=== PATIENT | female | born 1950 | race Caucasian/White ===

== ENCOUNTER → 2016-11-13 | Outpatient (REF) | payer MEDICAID, MEDICARE ==
[2016-11-13 12:35] LABS: BILIRUBIN,URINE Negative (Negative); CLARITY,URINE Clear; COLOR,URINE Yellow; GLUCOSE, URINE (UA) Negative (Negative); LEUKOCYTE ESTERASE ,URINE Trace (Negative); PH,URINE 5.5 (5.0 - 8.0); UROBILINOGEN,URINE 0.2 mg/dL (0.2-1.0)
[2016-11-13 12:45] LABS: URINE CENTRIFUGED VOLUME 12 mL
== END ==
LOC: LAB 12:02
PROVIDERS: ATTEND Family Medicine
DX: N39.0 Urinary tract infection, site not specified (principal)
CPT/HCPCS: 81003; 81015; 87088

== ENCOUNTER 2016-11-16 21:16 | Emergency (ER) | payer MEDICAID, MEDICARE ==
[~2016-11-16] VITALS: Ht 165.1 cm; Wt 181.4 kg
[2016-11-16] MEDS ORDERED: ALBUTEROL/IPRATROPIUM 3MG-0.5MG/3ML (DUONEB) NEB VIAL INH ONE ×2 (21:50→23:47)
[2016-11-16] MEDS ORDERED: SODIUM CHLORIDE FLUSH 10 ML SYR IV PRN (22:10)
[2016-11-16] MEDS ORDERED: SODIUM CHLORIDE FLUSH 3 ML SYR IV ONE (22:10)
[2016-11-16 22:20] LABS: BASOPHILS % (AUTO) 0 % (0-2); EOSINOPHILS % (AUTO) 0 % (0-4); LYMPHOCYTES # (AUTO) 0.4 X10^3; MEAN CORPUSCULAR VOLUME 82 FL (80-100); MEAN PLATELET VOLUME 9.9 FL (6.0-9.5); MONOCYTES # (AUTO) 0.3 X10^3; MONOCYTES % (AUTO) 11 % (3-11); NEUTROPHILS # (AUTO) 2.4 X10^3; NEUTROPHILS % (AUTO) 77 % (51-67); PLATELET COUNT 286 10^3uL (150-450); WHITE BLOOD COUNT 3.15 10^3uL (4.0-11.0)
[2016-11-16 22:21] LABS: MEAN CORPUSCULAR HEMOGLOBIN 25.4 PG (26.0-34.0)
[2016-11-16 22:22] LABS: MEAN CORPUSCULAR HGB CONC 31.1 g/dL (31.0-37.0)
[2016-11-16 22:29] LABS: ALBUMIN 3.7 g/dL (3.4-5.0); ALKALINE PHOSPHATASE 78 U/L (38-126); ANION GAP 18.3 MEQ/L (3-15); BUN/CREATININE RATIO 28 (10-20); CALCULATED IONIZED CALCIUM 3.8 mg/dL (3.8-4.6); TOTAL PROTEIN 7.1 g/dL (6.4-8.5)
[2016-11-16 22:37] LABS: INFLUENZA VIRUS TYPE A ANTIBOD Positive (NEGATIVE); INFLUENZA VIRUS TYPE B ANTIBOD Negative (NEGATIVE)
[2016-11-16] MEDS ORDERED: cefTRIAXone SODIUM 1,000 MG in SODIUM CHLORIDE 50 ML IV ONE (23:30)
--- NOTE | 2016-11-16 23:55 | NUR ---
Report called to Maria Nye LPN . No futher questions, verbalized understanding.
[2016-11-17] MEDS ORDERED: ALBUTEROL/IPRATROPIUM 3MG-0.5MG/3ML (DUONEB) NEB VIAL INH ONE (00:05)
[2016-11-17 00:13] VITALS: BP 116/64
== END 2016-11-17 00:38 | disposition home or self-care (01) ==
LOC: EDUNIT# 21:16 → ED 21:18
DX: J11.1 Influenza due to unidentified influenza virus with other respiratory manifestations (principal)
CPT/HCPCS: 36415; 71010; 80053; 83605; 83880; 84484; 85025; 87502; 94640; 96365; 99284; J0696; 99283

== ENCOUNTER 2016-12-04 17:58 | Emergency (ER) | payer MEDICAID, MEDICARE ==
[~2016-12-04] VITALS: Ht 157.5 cm; Wt 200.0 kg
--- NOTE | 2016-12-04 19:37 | NUR ---
Assisted to bedpan, very large stool, personal care given.
[2016-12-04 19:42] LABS: BASOPHILS % (AUTO) 0 % (0-2); EOSINOPHILS # (AUTO) 0.1 10^3uL; EOSINOPHILS % (AUTO) 2 % (0-4); LYMPHOCYTES # (AUTO) 0.7 X10^3; MEAN CORPUSCULAR VOLUME 82 FL (80-100); MONOCYTES # (AUTO) 0.6 X10^3; MONOCYTES % (AUTO) 9 % (3-11); NEUTROPHILS # (AUTO) 5.6 X10^3; NEUTROPHILS % (AUTO) 79 % (51-67); PLATELET COUNT 251 10^3uL (150-450); WHITE BLOOD COUNT 7.04 10^3uL (4.0-11.0)
[2016-12-04 19:49] LABS: ALBUMIN 3.5 g/dL (3.4-5.0); ALKALINE PHOSPHATASE 92 U/L (38-126); ANION GAP 13.1 MEQ/L (3-15); BUN/CREATININE RATIO 27 (10-20); TOTAL PROTEIN 6.9 g/dL (6.4-8.5)
[2016-12-04 19:50] LABS: MEAN CORPUSCULAR HEMOGLOBIN 25.9 PG (26.0-34.0); MEAN CORPUSCULAR HGB CONC 31.4 g/dL (31.0-37.0)
--- NOTE | 2016-12-04 20:12 | NUR ---
Report given to CHUCK Romero.
[2016-12-04] MEDS ORDERED: FUROSEMIDE 100 MG/10 ML (LASIX) VIAL IV ONE (21:05)
[2016-12-04 22:35] VITALS: BP 166/68
[2016-12-05 00:13] LABS: BILIRUBIN,URINE Negative (Negative); CLARITY,URINE Clear; COLOR,URINE Yellow; GLUCOSE, URINE (UA) Negative (Negative); LEUKOCYTE ESTERASE ,URINE Negative (Negative); UROBILINOGEN,URINE 0.2 mg/dL (0.2-1.0)
[2016-12-05 00:21] LABS: RBC,URINE 0-2 /HPF; URINE CENTRIFUGED VOLUME 12 mL
== END 2016-12-04 22:35 | disposition short-term general hospital (02) ==
LOC: ED 18:06
DX: I13.0 Hypertensive heart and chronic kidney disease with heart failure and stage 1 through stage 4 chronic kidney disease, or unspecified chronic kidney disease (principal); N18.3 Chronic kidney disease, stage 3 (moderate); I50.1 Left ventricular failure, unspecified; Z87.891 Personal history of nicotine dependence
CPT/HCPCS: 36415; 71020; 80053; 81003; 81015; 83880; 84484; 85025; 85379; 86140; 93005; 96374; 99285; J1940; 93010

== ENCOUNTER → 2016-12-04 | Outpatient (CLI) | payer MEDICARE, MEDICAID | LOC: EMS 22:10 | PROVIDERS: ATTEND Emergency Medicine | DX: R06.09 Other forms of dyspnea (principal); I50.9 Heart failure, unspecified ==

== ENCOUNTER 2016-12-16 11:31 | Emergency (ER) | payer MEDICAID, MEDICARE ==
[~2016-12-16] VITALS: Ht 170.2 cm; Wt 195.0 kg
--- NOTE | 2016-12-16 11:16 | NUR ---
Pt nurse called report stating pt had coughed up blood and mucous x2 this morning. Pt c/o pain in Rt chest and right side 07/16. RR elevated at 28 temp 100.8 at facility. Nurse states that pt is unhappy because she was recently taken off of [place] pain meds, but remains on fentanyl and oxycodone. HX of CHF, DVT, morbid obesity, pneumonia. Nurse states pt recenlty gained 30lbs during a hospital stay. PCP is Dr. Tan
[2016-12-16] MEDS ORDERED: ALBUTEROL 0.083% NEB SOLUTION 2.5 MG/3 ML VIAL INH ONE (11:45)
[2016-12-16] MEDS ORDERED: LORazepam 2 MG/ML (ATIVAN) 1 ML VIAL IV ONE ×2 (11:45→14:10)
[2016-12-16] MEDS ORDERED: HYDROmorphone 1 MG/ML (DILAUDID) SYRINGE IV ONE ×3 (11:45→13:30)
[2016-12-16 11:59] LABS: MEAN CORPUSCULAR VOLUME 82 FL (80-100); MEAN PLATELET VOLUME 10.3 FL (6.0-9.5); PLATELET COUNT 251 10^3uL (150-450); WHITE BLOOD COUNT 22.53 10^3uL (4.0-11.0)
[2016-12-16 12:11] LABS: MEAN CORPUSCULAR HEMOGLOBIN 25.1 PG (26.0-34.0); MEAN CORPUSCULAR HGB CONC 30.7 g/dL (31.0-37.0)
[2016-12-16 12:12] LABS: BAND NEUTROPHILS % 0 % (0-6); EOSINOPHILS % 0 % (0-4); LYMPHOCYTES # 1.1 #; MONOCYTES # 1.3 #; MONOCYTES % 6 % (3-11); RBC MORPH NORMAL (NORMAL); SEGMENTED NEUTROPHILS % 89 % (51-67); TOTAL CELLS COUNTED 100
[2016-12-16 12:18] LABS: ALBUMIN 3.6 g/dL (3.4-5.0); ALKALINE PHOSPHATASE 78 U/L (38-126); ANION GAP 13.6 MEQ/L (3-15); BUN/CREATININE RATIO 49 (10-20); CREATINE KINASE 55 U/L (30-135); TOTAL PROTEIN 6.7 g/dL (6.4-8.5)
[2016-12-16] MEDS ORDERED: VANCOMYCIN 1,000 MG in SODIUM CHLORIDE 250 ML IV ONE (12:45)
[2016-12-16 13:04] VITALS: BP 123/60
--- NOTE | 2016-12-16 13:27 | NUR ---
ATTEMPTED TO CALL [facility] TO GIVE REPORT, TERESITA STATES THE NURSE IS BUSY AND WILL CALL BACK IN A FEW MINUTES.
[2016-12-16 15:05] LABS: BILIRUBIN,URINE Negative (Negative); CLARITY,URINE Clear; COLOR,URINE Yellow; GLUCOSE, URINE (UA) Negative (Negative); LEUKOCYTE ESTERASE ,URINE Negative (Negative); UROBILINOGEN,URINE 0.2 mg/dL (0.2-1.0)
== END 2016-12-16 14:40 | disposition short-term general hospital (02) ==
LOC: EDUNIT# 11:31 → ED 11:32
DX: J18.1 Lobar pneumonia, unspecified organism (principal); J96.01 Acute respiratory failure with hypoxia; Z87.891 Personal history of nicotine dependence
CPT/HCPCS: 36415; 71010; 80053; 81003; 82550; 82553; 82803; 83605; 83880; 84484; 85025; 85379; 85610; 86140; 87040; 93005; 94640; 96365; 96366; 96375; 96376; 99284; J1170; J2060; J3370; J7050; J7613; 93010; 99285

== ENCOUNTER → 2016-12-16 | Outpatient (CLI) | payer MEDICAID, MEDICARE | LOC: EMS 11:25 | PROVIDERS: ATTEND Family Medicine | DX: R06.02 Shortness of breath (principal); J18.9 Pneumonia, unspecified organism ==

== ENCOUNTER 2017-02-06 19:07 | Emergency (ER) | payer MEDICARE ==
[~2017-02-06] VITALS: Ht 170.2 cm; Wt 190.9 kg
--- OUTSIDE RECORDS SUMMARY | 2017-02-06 19:14 | XMS REPORT | Continuity of Care Document ---
Author Author [facility] Organization [facility] Address Unknown Phone Unavailable Care Team Providers Care Childrens Club Attendant Name Role Phone Zoe Tan PCP [phone] Source Comments Some departments are not documenting in the electronic medical record. If you do not see the information that you expected, contact Release of Information in the Health Information Management department at [phone] for further assistance in locating additional records.[facility] Active Allergies and Adverse Reactions Allergen Noted Date Severity Reactions Comments Bactrim 01/02/2013 BLISTERS Betamethasone, Augmented 08/21/2007 UNKNOWN Levofloxacin 08/21/2007 RASH Moxifloxacin 08/21/2007 HIVES, RASH Current Medications Prescription Sig. Disp. Refills Start End Date Status Date pantoprazole DR(+) Take 20 mg by mouth twice 08/21/20 Active (PROTONIX) 40 mg PO TbEC daily. 07 hydrochlorothiazide take 25 mg by mouth 08/21/20 Active (HYDRODIURIL) 25 mg PO Daily. 07 Tab aspirin 325 mg PO Tab take 325 mg by mouth 08/21/20 Active Daily. 07 ramipril (ALTACE) 10 mg take 10 mg by mouth Twice 08/22/20 Active PO Cap Daily. 07 metformin (GLUCOPHAGE) Take 500 mg by mouth 10/15/19 Active 1,000 mg PO tablet daily. 500 mg in am and 08 500 mg at bedtime metoprolol XL (TOPROL XL) Take 50 mg by mouth daily 10/15/19 Active 50 mg PO Tb24 with breakfast. 08 furosemide (LASIX) 40 mg Take 40 mg by mouth Active PO tablet daily. Potassium 20 mg PO Chew Take by mouth. Active ALBUTEROL IN Inhale 2 Puffs by mouth Active as Needed. hydrocodone-acetaminophen Take 1-2 Tabs by mouth 30 Tab 0 05/31/20 Active (LORTAB 10/500) 10-500 mg every 4-6 hours as needed 11 PO per tablet for Pain. pregabalin (LYRICA) 100 Take 100 mg by mouth Active mg capsule twice daily. LORazepam (ATIVAN) 0.5 mg Take 0.5 mg by mouth Active tablet every 4 hours as needed. roflumilast (DALIRESP) Take 500 mcg by mouth Active 500 mcg tablet daily. fluconazole (DIFLUCAN) Take 1 Tab by mouth 11 Tab 0 07/23/20 Active 100 mg tablet daily. 14 ranitidine(+) (ZANTAC) Take 1 Tab by mouth at 90 Tab 3 07/23/20 Active 300 mg tablet bedtime daily. 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 Unfortunately, her weight exceeds the limits of the table here at . She is going to have to come back to [place] and have a D-Spect study done at our [facility] as that machine can accommodate her size. I will forward a note once I have the stress test results available to me. Rhinitis, chronic 04/20/2011 Obesity, morbid (more than 100 lbs over ideal weight or BMI > 40) (HCC) 07/2011 Decreased motor activity 04/15/2011 Uterine cancer (HCC) 04/03/2011 Overview: DIAGNOSIS: Adenocarcinoma of the uterus. PRIOR THERAPY: Presented to my office in 03/2011, for a second opinion for treatment of her endometrial/uterine cancer. She was originally diagnosed with uterine cancer in October 2010. Apparently, she had chronic pelvic and abdominal pain and bleeding all the time it was very irregular and going [facility]. She saw Dr. 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 She was subsequently seen by Dr. Velarde towards the beginning of September 2010. What happened next is a little difficult to ascertain because the patient first stated that Megace only was offered, but in reading Dr. Velarde's medical records in fact the patient had been scheduled for surgery and she was seen preoperatively by Dr. Pal, the transit mixer operator, Dr. Preciado, the steam bone press tender and although she was at a higher risk for surgery simply based on her comorbidities, he was willing to do it. However, because the patient is morbidly obese, has limited activity and had a surgery, particularly after seeing the bariatric surgeon who stated she had a 70 percent, or at least according to her, risk of . She cancelled the surgery. They subsequently offered her Megace and she is currently on it 40 mg twice daily. She was last seen by Dr. Velarde in October 2010, and has not been back. She had a CT scan in November 2010, as well as in March [address] 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 In March 2011, the CT scan showed the mass to have no significant change. There has been no biopsy and no follow up. In 2008, it was present and it measured 4.3 x 3.6. When she last saw Dr. Velarde, he recommended ultrasound every 3 months, but she has not had any follow up. After seen by me in 03/2011: CT scan was performed which did not suggest metastatic disease. She was placed on PO megace at that visit. On 05/15/2011 she underwent D&C which confirmed persistent changes, atypical papillary mucinous neoplasm, favor well-differentiated mucinous adenocarcinoma During that operative procedure, her legs could not be bent well, in particular her left leg. In addition, she had to be in a reverse trendelenburg position due to breathing issues. Her uterine cervix was poorly visualized and the procedure was technically difficult. It was apparent at that time that surgical intervention was not possible. L ast Assessment & Plan: Current Clinical examination, from today 05/31/2011: She presents with her brother to discuss options and plan of care. She is currently on Megace 80 mg po bid. PLAN: I recommended primary radiation therapy to control local disease as much as possible. She is not a surgical candidate. To continue with po megace. RV in 3 months; arrangements for RT were made. 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 Ideally, she needs her blood pressure to be under better control going forward. One could consider changing her from Toprol XL to Coreg but this doesn't preclude an operation and I didn't want to make major changes today. GERD (gastroesophageal reflux disease) 04/03/2011 Diabetes ([facility]) 04/03/2011 Asthma 04/03/2011 Depression 04/03/2011 COPD (chronic obstructive pulmonary disease) ([facility]) 04/03/2011 Social History Tobacco Use Types Packs/Day Years Used Date Former Smoker 0.10 10.0 Quit: 03/07/2003 Comments: quit in 2006 Alcohol Use Drinks/Week oz/Week Comments No Last Filed Vital Signs Vital Sign Reading Time Taken Blood Pressure 133/77 01/21/2015 2:04 PM CDT Pulse 69 01/21/2015 2:04 PM CDT Temperature 36.3 C (97.3 F) 05/31/2011 11:31 AM CDT Respiratory Rate - - Height 1.626 m (5' 4") 01/21/2015 2:02 PM CDT Weight 174.181 kg (384 lb) 01/21/2015 2:02 PM CDT Body Mass Index 65.88 01/21/2015 2:02 PM CDT Oxygen Saturation 97% 05/15/2011 11:00 AM CDT Plan of Care Health Maintenance Due Date Last Done Comments Hepatitis C Screening 1950 Physical (Comprehensive) 02/26/1959 Exam Pertussis Vaccine 02/26/1963 Tetanus Vaccine 02/26/1969 Dilated Eye Exam 02/26/1970 Foot Exam 02/26/1970 Hba1c 02/26/1970 Microalbumin 02/26/1970 Cervical Cancer Screening 02/26/1973 Breast Cancer Screening 1992 Colorectal Cancer 02/26/2002 Screening Shingles Vaccine 2012 Influenza Vaccine 06/07/2017 Results from Last 3 Months Not on file
--- OUTSIDE RECORDS SUMMARY | 2017-02-06 19:15 | XMS REPORT | Continuity of Care Document ---
Author Author [facility] Organization [facility] Address Unknown Phone Unavailable Care Team Providers Care Pole Framer Machine Name Role Phone Zoe Tan PCP [phone] Source Comments Some departments are not documenting in the electronic medical record. If you do not see the information that you expected, contact Release of Information in the Health Information Management department at [phone] for further assistance in locating additional records.[facility] Active Allergies and Adverse Reactions Allergen Noted [...] going to have to come back to [place] and have a D-Spect study done at our [facility] as that machine can accommodate her size. [...] irregular and going it is going on [facility]. She saw Dr. Sorto in [place] on July 13, 2010, and was diagnosed [...] was seen preoperatively by Dr. Pal, the hand paint mixer, Dr. Preciado, the program services assistant and although she was at a higher [...] today. GERD (gastroesophageal reflux disease) 04/03/2011 Diabetes ([facility]) 04/03/2011 Asthma 04/03/2011 Depression 04/03/2011 COPD (chronic obstructive pulmonary disease) ([facility]) 04/03/2011 Social History Tobacco Use Types Packs/Day [...]
--- NOTE | 2017-02-06 19:23 | NUR ---
CHARLIE WOODS FROM [facility] CALLED AND REPORTED THAT CLAUDE WAS ASKING TO COME AND BE ADMITTED TO HOSPITAL SO SHE HAVE SOMEONE CAN SIT WITH HER. PT SAID THAT SHE WANTED TO GO TO [facility] OR [place] BECAUSE THEY HAVE STAFF THAT WILL SIT IN ROOM WITH HER. CHARLIE DHILLON REPORTED THAT IS PT NEEDS IV ANTIBIOTICS THEY CAN DO THAT AT THEIR FACILITY
[2017-02-06] MEDS ORDERED: ONDANSETRON 2 MG/ML (Z0FRAN) 2 ML VIAL IV ONE ×2 (19:35→22:20)
[2017-02-06] MEDS ORDERED: NS IV 500 ML 500 ML IV SCH (19:35)
[2017-02-06] MEDS: SODIUM CHLORIDE FLUSH 10 ML SYR IV PRN ×3 (19:49→22:37)
--- NOTE | 2017-02-06 20:04 | NUR ---
PATIENT SITTING IN HER WHEELCHAIR WHEN THIS NURSE ARRIVED TO ROOM FOR ASSESSMENTS. PATIENT C/O NAUSEA AND PAIN TO LEFT LOWER PANUS AND FLANK. aFFECTED AREA IS DARK PINK IN COLOR AND VERY WARM TO THE TOUCH. ORAL TEMPERATURE WAS 101.2. P
[2017-02-06 20:20] LABS: BASOPHILS % (AUTO) 0 % (0-2); EOSINOPHILS % (AUTO) 0 % (0-4); LYMPHOCYTES # (AUTO) 0.7 X10^3; MEAN CORPUSCULAR HGB CONC 32.2 g/dL (31.0-37.0); MEAN CORPUSCULAR VOLUME 82 FL (80-100); MEAN PLATELET VOLUME 10.1 FL (6.0-9.5); MONOCYTES % (AUTO) 9 % (3-11); NEUTROPHILS # (AUTO) 9.9 X10^3; NEUTROPHILS % (AUTO) 85 % (51-67); PLATELET COUNT 307 10^3uL (150-450); WHITE BLOOD COUNT 11.75 10^3uL (4.0-11.0)
[2017-02-06 20:23] LABS: MEAN CORPUSCULAR HEMOGLOBIN 26.4 PG (26.0-34.0)
--- NOTE | 2017-02-06 20:23 | NUR ---
500 ML BAG OF NS HUNG PER PHYSICIAN ORDER. RATE IS 250 ML/HR.
[2017-02-06 20:29] LABS: ALBUMIN 4.1 g/dL (3.4-5.0); ANION GAP 18.3 MEQ/L (3-15); CALCULATED IONIZED CALCIUM 3.7 mg/dL (3.8-4.6); TOTAL PROTEIN 7.9 g/dL (6.4-8.5)
[2017-02-06] MEDS ORDERED: HYDROmorphone 1 MG/ML (DILAUDID) SYRINGE IV ONE ×2 (20:35→22:00)
[2017-02-06] MEDS ORDERED: VANCOMYCIN 1,000 MG in SODIUM CHLORIDE 250 ML IV ONE (21:10)
[2017-02-06] MEDS ORDERED: POTASSIUM CL IVPB 10 MEQ/100ML 100 ML IV ONE (21:10)
--- NOTE | 2017-02-06 21:23 | NUR ---
[facility] NOTIFED DR FERRARI TO TALK TO HOSPITALIST
--- NOTE | 2017-02-06 21:27 | NUR ---
DR FERRARI SPEAKING WITH HOSPITALIST IN [place] ABOUT [facility]
--- NOTE | 2017-02-06 21:35 | NUR ---
DR JAMA ACCEPT PT
--- NOTE | 2017-02-06 21:37 | NUR ---
CALLED [facility] TO LET THEM KNOW (SPOKE TO AMY) THAT WE WERE GOING TO [facility] PT TO [facility] Addendum: 02/06/17 at 2138 by [id number] CLAUS
[2017-02-06 21:49] VITALS: BP 114/67
[2017-02-06] MEDS ORDERED: ONDANSETRON 2 MG/ML (Z0FRAN) 2 ML VIAL ONE (22:20)
--- NOTE | 2017-02-06 22:40 | NUR ---
PT VERY WORRIED ABOUT HER W/C GETTING BACK TO [facility] FROM EMS TOLD HER HE WOULD PERSONALLY TAKE IT BACK TO [facility].
[2017-02-06 22:54] LABS: BILIRUBIN,URINE Negative (Negative); CLARITY,URINE Clear; COLOR,URINE Yellow; GLUCOSE, URINE (UA) Negative (Negative); LEUKOCYTE ESTERASE ,URINE 1+ (Negative); UROBILINOGEN,URINE 0.2 mg/dL (0.2-1.0)
[2017-02-06 23:12] LABS: URINE CENTRIFUGED VOLUME 12 mL
[2017-02-06 23:19] LABS: COARSE GRANULAR CASTS,URINE 1+ /LPF
== END 2017-02-06 22:42 | disposition short-term general hospital (02) ==
LOC: ED 19:08
DX: L03.311 Cellulitis of abdominal wall (principal); E11.22 Type 2 diabetes mellitus with diabetic chronic kidney disease; N17.9 Acute kidney failure, unspecified; I13.0 Hypertensive heart and chronic kidney disease with heart failure and stage 1 through stage 4 chronic kidney disease, or unspecified chronic kidney disease; N18.9 Chronic kidney disease, unspecified; I50.9 Heart failure, unspecified; Z87.891 Personal history of nicotine dependence; Z79.01 Long term (current) use of anticoagulants; N39.0 Urinary tract infection, site not specified
CPT/HCPCS: 36415; 80053; 81003; 81015; 83605; 85025; 85610; 85730; 86140; 87040; 87088; 96365; 96368; 96375; 96376; 99284; J1170; J2405; J3370; J3480; J7040; J7050; 99283

== ENCOUNTER → 2017-02-06 | Outpatient (CLI) | payer MEDICARE ==
[~2017-02-06] MED LIST: AC325T PO; ACHYD1T PO; ALBU2.5V4 INH; ALLO300T2 PO; ALPR.25T PO; ALPR1TAB7 PO; ASPI-860 PO; AZIT250T81 PO; BISA10SU58 RC; BUDE0.256 IH; BUME0.5T3 PO; BUME1TAB4 PO; BUME2TAB3 PO; CITA10TA4 PO; DOCU-243 PO; DOCU100C8 PO; DOXY100C2 PO; FAMO20TA13 PO; FENT1PAT6 TD; FENT1PAT8 TD; FERR-74 PO; FLUC100T6 PO; FLUC150T PO; FNT25TD TD; FURO80TA62 PO; GABA800T2 PO; GBPN100C PO; GBPN600T PO; GLIP5TAB13 PO; GUAI118L16 PO; GUAI200T4 PO; HC2.5C30 TOP; HYDR-3920 PO; IPRA0.2S50 IH; IPRA3AMP11 INH; LEVO75TA6 PO; LRT10T PO; LSNP10T PO; MAG30ORA PO; MENT10LO MM; METO-272 PO; METO-274 PO; MTP50T PO; NST15PW TOP; OMEP40CA36 PO; ONDA4TAB41 PO; OXYC10TA7 PO; OXYC5TAB71 PO; PANT40TA3 PO; POLY17PO6 PO; POTA10CA2 PO; PRD10T PO; PRED20TA PO; RANI150C4 PO; RIVA20TA PO; SPIR25TA PO; WARF6TAB PO; WARF6TAB3 PO; WARF7.5T3 PO; WRF5T PO; Zinc Oxide TOP; [UNRECOGNIZED DRUG - CODE] MM; [UNRECOGNIZED DRUG - OTHER] PO
== END ==
LOC: EMS 22:05
PROVIDERS: ATTEND Internal Medicine
DX: N17.9 Acute kidney failure, unspecified (principal); N18.9 Chronic kidney disease, unspecified; L03.311 Cellulitis of abdominal wall

== ENCOUNTER → 2017-02-14 | Outpatient (REF) | payer MEDICARE | LOC: LAB 18:05 | PROVIDERS: ATTEND Family Medicine | DX: I82.509 Chronic embolism and thrombosis of unspecified deep veins of unspecified lower extremity (principal) | CPT/HCPCS: 85610 ==

== ENCOUNTER → 2017-02-15 | Outpatient (REF) | payer MEDICARE | LOC: LAB 09:48 | PROVIDERS: ATTEND Family Medicine | DX: I82.509 Chronic embolism and thrombosis of unspecified deep veins of unspecified lower extremity (principal) | CPT/HCPCS: 85610 ==

== ENCOUNTER → 2017-02-16 | Outpatient (REF) | payer MEDICARE | LOC: LAB 05:24 | PROVIDERS: ATTEND Family Medicine | DX: I25.9 Chronic ischemic heart disease, unspecified (principal) | CPT/HCPCS: 85610 ==

== ENCOUNTER 2017-02-25 14:51 | Emergency (ER) | payer MEDICARE ==
[~2017-02-25] VITALS: Ht 170.2 cm; Wt 193.6 kg
--- OUTSIDE RECORDS SUMMARY | 2017-02-25 14:59 | XMS REPORT | Continuity of Care Document ---
Author Author [facility] Organization [facility] Address Unknown Phone Unavailable Care Team Providers Care Student Worker Name Role Phone Zoe Tan PCP [phone] Source Comments Some departments are not documenting in the electronic medical record. If you do not see the information that you expected, contact Release of Information in the Health Information Management department at [phone] for further assistance in locating additional records.[facility] Active Allergies and Adverse Reactions Allergen Noted [...] going to have to come back to [place] and have a D-Spect study done at our [facility] as that machine can accommodate her [...] irregular and going it is going [facility]. She saw Dr. Sorto in [place] on July 13, 2010, and was diagnosed [...] was seen preoperatively by Dr. Pal, the fios line installer, Dr. Preciado, the philosophy lecturer and although she was at a higher [...] today. GERD (gastroesophageal reflux disease) 04/03/2011 Diabetes ([facility]) 04/03/2011 Asthma 04/03/2011 Depression 04/03/2011 COPD (chronic obstructive pulmonary disease) ([facility]) 04/03/2011 Social History Tobacco Use Types Packs/Day [...]
[2017-02-25 15:00] VITALS: BP 118/69
--- NOTE | 2017-02-25 16:02 | NUR ---
requests to go to the bathroom in the hallway, takes 2 people to transfer her, called [facility] [employer] pumping supervisor to bring large commode down
[2017-02-25 16:03] LABS: BASOPHILS % (AUTO) 0 % (0-2); EOSINOPHILS # (AUTO) 0.2 10^3uL; EOSINOPHILS % (AUTO) 3 % (0-4); LYMPHOCYTES # (AUTO) 0.6 X10^3; MEAN CORPUSCULAR HEMOGLOBIN 26.5 PG (26.0-34.0); MEAN CORPUSCULAR HGB CONC 31.1 g/dL (31.0-37.0); MEAN CORPUSCULAR VOLUME 85 FL (80-100); MEAN PLATELET VOLUME 9.6 FL (6.0-9.5); MONOCYTES # (AUTO) 0.6 X10^3; MONOCYTES % (AUTO) 8 % (3-11); NEUTROPHILS # (AUTO) 5.6 X10^3; NEUTROPHILS % (AUTO) 79 % (51-67); PLATELET COUNT 351 10^3uL (150-450); WHITE BLOOD COUNT 7.04 10^3uL (4.0-11.0)
[2017-02-25 16:17] LABS: ALBUMIN 3.8 g/dL (3.4-5.0); ANION GAP 14.2 MEQ/L (3-15); CALCULATED IONIZED CALCIUM 3.9 mg/dL (3.8-4.6); TOTAL PROTEIN 7.4 g/dL (6.4-8.5)
--- NOTE | 2017-02-25 17:20 | NUR ---
Patient requesting pain medication and information as to what is happening - requests relayed to patient's nurse and Dr. Gasca.
[2017-02-25] MEDS ORDERED: HYDROmorphone 1 MG/ML (DILAUDID) SYRINGE IM ONE (17:35)
--- NOTE | 2017-02-25 19:08 | NUR ---
patient called [facility] and asked for a different room because her on the floor, that she was going to. so they had to change rooms and report needed to be recalled to another floor
== END 2017-02-25 19:14 | disposition admitted as inpatient to this hospital (09) ==
LOC: EDUNIT# 14:51 → ED 14:52
DX: L03.116 Cellulitis of left lower limb (principal); I89.0 Lymphedema, not elsewhere classified; R63.5 Abnormal weight gain; Z68.44 Body mass index [BMI] 60.0-69.9, adult; R79.1 Abnormal coagulation profile
CPT/HCPCS: 36415; 80053; 85025; 85610; 96372; 99283; J1170; 99282

== ENCOUNTER → 2017-02-25 | Outpatient (CLI) | payer MEDICARE | LOC: EMS 19:13 | DX: L03.116 Cellulitis of left lower limb (principal); L03.115 Cellulitis of right lower limb ==